=== PATIENT | female | born 1935 | race Caucasian/White ===

== ENCOUNTER 2016-12-18 11:52 | Observation (INO) ==
[2016-12-18] MEDS ORDERED: Ipratropium/Albuterol Neb 3 ML IH ONE (11:59)
--- NOTE | 2016-12-18 12:05 | Emergency Department Note ---
Disposition Clinical Impression: Dyspnea Qualifiers: Dyspnea type: unspecified Qualified Code(s): R06.00 - Dyspnea, unspecified Disposition: Admitted As Inpatient Condition: Fair Referrals: Zac Dial MD [Primary Care Provider] - Forms: ED Satisfaction Letter Time of Disposition: 13:24 SOB HPI - General Chief Complaint: ED Shortness of Breath/Dyspnea Stated Complaint: Cough Time Seen by Provider: 12/18/16 11:59 Source: patient, family Mode of arrival: wheelchair Limitations: no limitations Nursing Notes Reviewed: Yes Vital Signs Reviewed: Yes - History of Present Illness 81-year-old who states she's been short of breath with a cough for one week. States she has run a fever at home. Has no history of lung problems. Does have a history of congestive heart failure. Pt Subjective Complaint: shortness of breath, cough Onset (ago): week(s) Context: recent illness Severity: moderate Consistency/Duration: constant Improves with: nothing Worsens with: exertion Known history of: congestive heart failure Associated symptoms: Reports: fever, cough, wheezing Treatment prior to arrival: none Cough Description: Involuntary Cough Frequency: Intermittent - Related Data Home Medications Medication Instructions Recorded Confirmed Aspirin 81 mg PO DAILY 11/22/15 11/22/15 Labetalol HCl 12.5 mg PO BID 11/22/15 11/22/15 Levothyroxine [Synthroid] 25 mcg PO DAILY 11/22/15 11/22/15 Losartan Potassium [Cozaar] 100 mg PO DAILY 11/22/15 11/22/15 Omeprazole [PriLOSEC] 10 mg PO DAILY 11/22/15 11/23/15 Previous Rx's Medication Instructions Recorded Cholecalciferol (D-3) [Vitamin D] 1,000 unit PO DAILY #30 tablet 11/25/15 Cyclobenzaprine [Flexeril] 10 mg PO TID PRN #30 tablet 11/25/15 HYDROcodone/Acet 5/325 mg [[place] 1 tab PO Q6H PRN #20 tablet 11/25/15 5-325 mg] Allergies Allergy/AdvReac Type Severity Reaction Status Date / Time No Known Allergies Allergy Verified 11/22/15 17:44 All systems ED: reviewed and negative except as stated. Constitutional: Denies: fever, chills, weakness, weight change Eyes: Denies: eye pain, eye discharge, vision change ENT ED: Denies: ear pain, throat pain, dental pain, hearing loss, epistaxis, congestion, dysphagia Cardiovascular: Denies: chest pain, palpitations, dyspnea on exertion, edema, syncope Respiratory: Reports: cough, dyspnea. Denies: wheezes, hemoptysis, stridor Gastrointestinal: Denies: abdominal pain, nausea, vomiting, diarrhea, constipation, hematemesis, melena, hematochezia Genitourinary: Denies: dysuria, frequency, hematuria, discharge Musculoskeletal: Denies: back pain, neck pain, arthralgia, myalgia Integumentary: Denies: rash, abrasion, lesions Neurological: Denies: headache, weakness, numbness, paresthesias, confusion, abnormal gait, vertigo Psychiatric: Denies: anxiety, depression, suicidal thoughts, homicidal thoughts , auditory hallucinations, visual hallucinations Endocrine: Denies: fatigue Hematological/Lymphatic: Denies: easy bleeding, easy bruising Allergic/Immunologic: Denies: facial swelling, urticaria Past Medical History - Past Medical History Medical history: Reports: CHF, GERD, hypertension, thyroid disease, other Surgical history: Reports: colectomy, hysterectomy Psychiatric history: Reports: no psych history - Social History Smoking Status: Never smoker Alcohol use: Reports: none Drug use: Reports: none Physical Exam - General Limitations: no limitations General appearance: alert, in no apparent distress - Head Head exam: atraumatic, normocephalic, normal inspection - Eye Eye exam: Present: normal appearance, PERRL, EOMI - ENT ENT exam: normal exam, normal oropharynx, mucous membranes moist - Neck Neck exam: Present: normal inspection, full ROM, trachea midline - Chest Chest inspection: Present: normal inspection, symmetric chest wall rise - Respiratory Respiratory exam: Present: other (Some rhonchi and rales) - Cardiovascular Cardiovascular exam: Present: regular rate, normal rhythm, normal heart sounds - Abdominal Exam Abdominal exam: Present: soft, Non-Tender. Absent: tenderness, distention, guarding, rebound, rigidity - Extremities Exam Extremities exam: Present: normal inspection, full ROM. Absent: tenderness, pedal edema - Expanded Lower Extremity Exam Neurovascular/Tendon exam: Absent: motor deficit, sensory deficit, tendon deficit Gait: not tested/not observed - Back Exam Back exam: Present: normal inspection, full ROM. Absent: tenderness - Neurological Exam Neurological exam: Present: alert, oriented X3 - Psychiatric Psychiatric exam: Present: normal affect - Skin Skin exam: Present: warm, dry, intact, normal color Course - Reevaluation(s) Reevaluation #1: 81-year-old comes in with exertional dyspnea and a cough congested. The patient is very winded when she walks. Her workup here including chest x-ray BNP and troponin are all negative. This may represent an anginal equivalent versus an infection. Time: 13:23 - Consultations Consultation #1: Discussed with Karol Covarrubias nurse practitioner, admit. Time: 13:23 Vital Signs Temperature 98.1 F 12/18/16 11:55 Pulse Rate 72 12/18/16 11:55 Respiratory Rate 20 12/18/16 11:55 Blood Pressure 118/76 12/18/16 11:55 O2 Sat by Pulse Oximetry 93 12/18/16 11:55 Temperature 98.1 F 12/18/16 11:55 Pulse Rate 67 12/18/16 12:51 Respiratory Rate 12 12/18/16 12:51 Blood Pressure 131/65 12/18/16 12:51 O2 Sat by Pulse Oximetry 99 12/18/16 12:51 Oxygen Delivery Oxygen Delivery Nasal Cannula Shortness of Breath/Dyspnea - Lab Data Lab results reviewed: Yes I reviewed the patient's lab results. Result diagrams: 12/18/16 12:24 12/18/16 12:24 Lab Results 12/18/16 12/18/16 12/18/16 Range/Units 12:24 12:24 12:24 WBC 8.8 (4.3-11.1) K/mcL RBC 4.11 (3.82-4.97) M/mcL Hgb 11.7 (11.5-15.4) g/dL Hct 35.7 (35.3-44.9) % MCV 86.9 (83.0-100.0) fL MCH 28.5 (28.0-33.3) pg MCHC 32.8 (31.6-35.5) g/dL RDW 12.8 (11.5-14.5) % Plt Count 201 (140-400) K/mcL MPV 9.6 (9.4-12.4) fL Immature Gran % 0.3 (0-4) % Seg Neutrophils % 69.0 % Lymphocytes % 15.2 % Monocytes % 13.2 % Eosinophils % 1.8 % Basophils % 0.5 % Neutrophils # 6.1 (1.6-8.9) K/mcL Lymphocytes # 1.3 (0.6-4.6) K/mcL Monocytes # 1.2 (0.0-1.3) K/mcL Eosinophils # 0.2 (0.0-0.6) K/mcL Basophils # 0.0 (0.0-0.2) K/mcL Sodium 138 (136-145) mEq/L Potassium 4.7 H (3.5-4.5) mEq/L Chloride 103 (98-109) mEq/L Carbon Dioxide 26 (19-29) mEq/L BUN 34 H (7-20) mg/dL Creatinine 1.62 H (0.57-1.11) mg/dL Est GFR ( Amer) 37 L (> 60) Est GFR (Non-Af Amer) 30 L (> 60) BUN/Creatinine Ratio 21 (6-26) Glucose 115 H (70-99) mg/dL Calculated Osmolality 295 (280-300) Lactic Acid (0.5-2.2) mmol/L Calcium 9.6 (8.6-10.8) mg/dL Troponin I 0.02 (0-0.03) ng/mL B-Natriuretic Peptide (0-100) pg/mL 12/18/16 12/18/16 Range/Units 12:24 12:24 WBC (4.3-11.1) K/mcL RBC (3.82-4.97) M/mcL Hgb (11.5-15.4) g/dL Hct (35.3-44.9) % MCV (83.0-100.0) fL MCH (28.0-33.3) pg MCHC (31.6-35.5) g/dL RDW (11.5-14.5) % Plt Count (140-400) K/mcL MPV (9.4-12.4) fL Immature Gran % (0-4) % Seg Neutrophils % % Lymphocytes % % Monocytes % % Eosinophils % % Basophils % % Neutrophils # (1.6-8.9) K/mcL Lymphocytes # (0.6-4.6) K/mcL Monocytes # (0.0-1.3) K/mcL Eosinophils # (0.0-0.6) K/mcL Basophils # (0.0-0.2) K/mcL Sodium (136-145) mEq/L Potassium (3.5-4.5) mEq/L Chloride (98-109) mEq/L Carbon Dioxide (19-29) mEq/L BUN (7-20) mg/dL Creatinine (0.57-1.11) mg/dL Est GFR ( Amer) (> 60) Est GFR (Non-Af Amer) (> 60) BUN/Creatinine Ratio (6-26) Glucose (70-99) mg/dL Calculated Osmolality (280-300) Lactic Acid 1.0 (0.5-2.2) mmol/L Calcium (8.6-10.8) mg/dL Troponin I (0-0.03) ng/mL B-Natriuretic Peptide 98 (0-100) pg/mL - Radiology Data Radiology results reviewed: Yes I reviewed the patient's radiology results. Chest X-Ray 12/18/16 11:59 IMPRESSION: No acute cardiopulmonary disease. D/ / Ferny Love MD / Ferny Love MD Interpreting Provider: Ferny Love MD - EKG Data EKG attestation: Yes I reviewed and interpreted this EKG. EKG shows normal: Reports: sinus rhythm Rate: Reports: normal Rhythm: Reports: NSR [place]/QRS: Reports: LBBB When compared to previous EKG there are: no significant changes (08/27/2014) Interpretation: Reports: no acute changes
[2016-12-18 12:35] LABS: Basophils % 0.5 %; Eosinophils # 0.2 K/mcL (0.0-0.6); Eosinophils % 1.8 %; Hematocrit 35.7 % (35.3-44.9); Hemoglobin 11.7 g/dL (11.5-15.4); Immature Granulocytes % 0.3 % (0-4); Lymphocytes # 1.3 K/mcL (0.6-4.6); Lymphocytes % 15.2 %; Mean Corpuscular HGB Conc 32.8 g/dL (31.6-35.5); Mean Corpuscular Hemoglobin 28.5 pg (28.0-33.3); Mean Corpuscular Volume 86.9 fL (83.0-100.0); Mean Platelet Volume 9.6 fL (9.4-12.4); Monocytes # 1.2 K/mcL (0.0-1.3); Monocytes % 13.2 %; Neutrophils # 6.1 K/mcL (1.6-8.9); Platelet Count 201 K/mcL (140-400); Red Blood Count 4.11 M/mcL (3.82-4.97); Red Cell Distribution Width 12.8 % (11.5-14.5)
[2016-12-18 12:48] LABS: Calcium 9.6 mg/dL (8.6-10.8); Potassium 4.7 mEq/L (3.5-4.5)
[2016-12-18] MEDS ORDERED: Azithromycin 500 MG in D5% in Water 250 ML IVPB ONE (13:20)
[2016-12-18] MEDS ORDERED: Acetaminophen 325 MG TABLET PO PRN (13:59)
[2016-12-18] MEDS ORDERED: Naloxone 0.4 MG/ML INJ IVP PRN (13:59)
--- NOTE | 2016-12-18 14:38 | Internal Med History&Physical ---
<Warren Cee P - Last Filed: 12/18/16 16:40> Date of Encounter: 12/18/16 Internal Medicine - H&P: HPI History of present illness: Ms. Booth is a 81 year old female Internal Medicine - H&P: Meds Aspirin [Lo-Dose Aspirin EC] 81 mg PO DAILY #0 11/22/15 [History] Levothyroxine [Synthroid] 25 mcg PO DAILY 11/22/15 [History] Losartan Potassium [Cozaar] 100 mg PO DAILY 11/22/15 [History] Omeprazole [PriLOSEC] 20 mg PO DAILY 11/22/15 [History] Cholecalciferol (D-3) [Vitamin D] 1,000 unit PO DAILY #30 tablet 11/25/15 [Rx] Calcium Carb,Cit/D3/Phytostrol [Citracal D + Heart Health Tab] 1 tab PO DAILY [History] Carvedilol [Carvedilol] 12.5 mg PO BID 12/18/16 [History] Glucosamine/MSM/Chondroit Sulf [Cvs Fxrolkvvddw-Ugpsyb-KTO Tab] 1 tab PO DAILY 12/18/16 [History] Allergies No Known Allergies Allergy (Verified 11/22/15 17:44) All Systems PM: A 10-system review of systems was performed and is negative for pertinent findings except as documented above in the HPI. - Constitutional Vitals: Temp Pulse Resp BP Pulse Ox 98.1 F 72 20 133/98 97 12/18/16 15:06 12/18/16 15:06 12/18/16 15:06 12/18/16 15:06 12/18/16 15:06 Internal Med - H&P Results - Labs CBC & Chem 7: 12/18/16 12:24 12/18/16 12:24 - Attending Attestation I examined this patient and my medical decision-making was reviewed with the CINDER PITMAN/PA/Advanced Practice Nurse/Resident Physician. I agree with the documented findings, disposition and treatment plan as described except to the extent set forth below. <Marlyn Norris - Last Filed: 12/18/16 17:37> Date of Encounter: 12/18/16 Time of Encounter: 14:38 Assessment and Plan (1) Dyspnea Current visit: Yes Status: Acute She has been exercising increased dyspnea as well as a cough she is unable to perform her own ADLs. Chest x-ray no acute process the past history COPD she does have history CHF BNP is 98 no peripheral edema noted some scattered rhonchi and rales. He was hypoxic on presentation SPO2 88% Continue with oxygen titrated to maintain SPO2 greater than 92% 2 we will continue with bronchodilators 3 we will obtain d-dimer as well as VQ scan to rule out possibility of PE 4 we will trend troponins 5 we will continue with Rocephin and azithromycin 6 obtain cardiac echo Qualifiers: Dyspnea type: shortness of breath Qualified Code(s): R06.02 - Shortness of breath (2) CKD (chronic kidney disease), stage III Current visit: No Status: Chronic 1 creatinine is 1.62. Line is 1.2-1.4 we will continue to monitor creatinine 2 and gentle hydration 3 monitor intake and output daily weights 4 avoid nephrotoxins (3) Hypertension Current visit: No Status: Chronic 1 presently stable continue with home medications 2 low sodium diet Qualifiers: Hypertension type: essential hypertension Qualified Code(s): I10 - Essential (primary) hypertension (4) DVT prophylaxis Current visit: Yes Status: Acute Heparin subcutaneous Internal Medicine - H&P: HPI Chief complaint: Shortness of breath and cough Admitted From: Emergency Dept Plans for Post Hospital Care: Home History of present illness: Ms. Booth is a 81 year old female has a history of hypertension CHF [place] CMP CK D stage III she had heart catheter in 2014 with no stents. According to the patient she has been experiencing increasing shortness of breath and a cough which started on Tuesday. She has been producing yellow thick sputum. She has had subjective fevers she denies any weight gain weight loss no edema. She denies any recent sick contacts. She denies any chest pain abdominal pain nausea vomiting or diarrhea. She states his shortness of breath has increased to the point that she is unable to perform her activities of daily living. She presented to the ER with above complaint. According to ER records lab work was unremarkable leukocytosis creatinine is 1.62 however patient's baseline is 1.2- 1.4 area and troponins 0.02 BNP was 98 chest x-ray showed no acute process EKG with no ST-T wave abnormality she does have a left bundle branch block which has been chronic. She was 93% on room air at presentation She has been admitted for further workup and evaluation. Presently the patient denies any chest pain she has conversational dyspnea she is on 2 L nasal cannula and started that SPO2 will drop down during conversation. She has scattered wheezes and rhonchi throughout lung tabor she has a moist nonproductive cough heart sounds are regular S1-S2 with no rubs clicks or gallops noted. No edema noted abdomen soft nontender. She is hemodynamically stable. Reviewed this case with Dr. Cee who agrees with plan. Past Med Surg Social Fam HX - Past Medical History Medical history: CHF, GERD, hypertension, thyroid disease, other Psychiatric history: no psych history - Past Surgical History Surgical History: colectomy, hysterectomy - Social History Smoking Status: Never smoker Alcohol use: none Drug use: none - Family History Mother Living Status: Hx Family Cardiac Disorders: Yes (HTN) Hx Family Respiratory Disorders: No Hx Family Cancer: No Hx Family GI Disorders: No Hx Family Endocrine Disorder: No Hx Family Neuromuscular Disorders: No Hx Family Neurologic Disorders: No Hx Family HEENT Disorders: No Hx Family Autoimmune Disorders: No Father Living Status: Hx Family Cardiac Disorders: No Hx Family Respiratory Disorders: No Hx Family Cancer: Yes (Skin) Hx Family GI Disorders: No Hx Family Endocrine Disorder: No Hx Family Neuromuscular Disorders: No Hx Family Neurologic Disorders: No Hx Family HEENT Disorders: No Hx Family Autoimmune Disorders: No All Systems PM: A 10-system review of systems was performed and is negative for pertinent findings except as documented above in the HPI. - Constitutional Constitutional: fatigue, no chills, no fever(s), no night sweats - EENT Eyes: no change in vision, no discharge, no pain, no photophobia Nose, mouth and throat: no dysphagia, no nasal discharge, no neck pain, no sore throat - Cardiovascular Cardiovascular ROS IM: dyspnea on exertion - Respiratory Respiratory: cough, dyspnea on exertion, change in phlegm color - Gastrointestinal Gastrointestinal: no abdominal pain, no diarrhea, no hematemesis, no hematochezia, no melena, no nausea, no vomiting - Genitourinary Genitourinary: no change in urinary stream, no dysuria, no flank pain, no hematuria - Musculoskeletal Musculoskeletal ROS IM: no numbness, no tingling - Integumentary Integumentary IM: no rash, no unusual bruising - Neurological Neurological ROS: no confusion, no convulsions, no focal weakness, no numbness, no tingling, no tremor(s) - Hematologic/Lymphatic Hematologic/Lymphatic: no easy bruising - Constitutional Vitals: Temp Pulse Resp BP Pulse Ox 98.1 F 64 12 148/83 98 12/18/16 11:55 12/18/16 13:58 12/18/16 14:03 12/18/16 14:03 12/18/16 13:58 General appearance: Present: A&O X 3, answers questions appropriately - Head Head exam: Present: atraumatic, normocephalic - Eye Eye exam: Present: PERRL, conjuntiva pink, sclera anicteric Pupils: Present: PERRL - Neck Neck exam general surgery: Present: supple, trachea midline. Absent: lymphadenopathy - Respiratory Respiratory exam: Present: rhonchi, wheezes. Absent: accessory muscle use, rales Additional comments: Conversational dyspnea - Cardiovascular Cardiovascular exam: Present: RRR, +S1, +S2. Absent: diastolic murmur, gallop, rubs, systolic murmur - GI/Abdominal GI/Abdominal exam: Present: normal bowel sounds, soft, no peritoneal signs. Absent: distended, tenderness - Extremities Exam Extremities exam: Present: warm, radial pulses palpable and symetrical. Absent : calf tenderness, cyanotic, pedal edema - Neurological Exam Neurological exam: Present: CN II-XII intact, oriented X3, no focal deficits. Absent: pronater drift, facial droop, speech deficit - Skin Skin exam: Present: dry, intact Internal Med - H&P Results - Labs CBC & Chem 7: 12/18/16 12:24 12/18/16 12:24 - EKG Data EKG shows normal: sinus rhythm - EKG Data Prior EKG available for review: yes When compared to previous EKG: there is no significant change EKG comments: 12/18/16 17:30 Left bundle-branch block which was present prior EKG - Diagnostic Studies Chest x-ray Additional comments: Chest X-Ray 12/18/16 11:59 IMPRESSION: No acute cardiopulmonary disease. D/ / Ferny Love MD / Ferny Love MD Interpreting Provider: Ferny Love MD
[2016-12-18] MEDS ORDERED: Albuterol 2.5 MG/3 ML NEBULIZER IH PRN (15:03)
[2016-12-18] MEDS: MethylPREDNISolone 40 MG/ML VIAL IVP SCH ×2 (16:13→23:19)
[2016-12-18] MEDS: 0.9 % Sodium Chloride 1,000 ML IVC SCH (16:13)
[2016-12-18] MEDS: Benzonatate 100 MG CAPSULE PO PRN ×2 (17:02→23:24)
[2016-12-18] MEDS: *HR* Heparin 5,000 UNIT/ML VIAL SQ SCH (17:02)
[2016-12-18] MEDS: Ipratropium/Albuterol Neb 3 ML IH SCH ×3 (17:49→23:11)
[2016-12-19 01:28] LABS: Basophils % 0.1 %; Hematocrit 34.5 % (35.3-44.9); Hemoglobin 10.9 g/dL (11.5-15.4); Immature Granulocytes % 0.6 % (0-4); Immature Platelets 3.2 % (1.1-6.1); Lymphocytes # 0.8 K/mcL (0.6-4.6); Lymphocytes % 9.4 %; Mean Corpuscular HGB Conc 31.6 g/dL (31.6-35.5); Mean Corpuscular Hemoglobin 27.7 pg (28.0-33.3); Mean Corpuscular Volume 87.6 fL (83.0-100.0); Mean Platelet Volume 10.1 fL (9.4-12.4); Monocytes # 0.2 K/mcL (0.0-1.3); Platelet Count 198 K/mcL (140-400); Red Blood Count 3.94 M/mcL (3.82-4.97); Red Cell Distribution Width 12.6 % (11.5-14.5); Segmented Neutrophils % 87.9 %
[2016-12-19 01:44] LABS: Calcium 9.2 mg/dL (8.6-10.8); Magnesium 2.2 mg/dL (1.6-2.6); Potassium 4.6 mEq/L (3.5-4.5)
[2016-12-19] MEDS: Ipratropium/Albuterol Neb 3 ML IH SCH ×6 (04:00→23:12)
[2016-12-19] MEDS: Levothyroxine 25 MCG TABLET PO SCH (06:13)
[2016-12-19] MEDS: *HR* Heparin 5,000 UNIT/ML VIAL SQ SCH ×2 (06:14→18:14)
[2016-12-19] MEDS: 0.9 % Sodium Chloride 1,000 ML IVC SCH ×2 (06:14→22:41)
[2016-12-19] MEDS: Benzonatate 100 MG CAPSULE PO PRN (10:04)
[2016-12-19] MEDS: Aspirin Enteric Coated 81 MG Tablet PO SCH (10:05)
[2016-12-19] MEDS: Azithromycin 500 MG in D5% in Water 250 ML IVPB SCH (10:05)
[2016-12-19] MEDS: MethylPREDNISolone 40 MG/ML VIAL IVP SCH ×3 (10:05→22:44)
--- NOTE | 2016-12-19 15:16 | Internal Med Progress Note ---
Date of Encounter: 12/19/16 Time of Encounter: 12:30 - Assessment and plan (1) Dyspnea Current Visit: Yes Status: Acute Assessment and plan: improving. Unclear causation. Chest x-ray is negative. She is a non-/never smoker. She appears euvolemic on examination now that she has been eating and drinking. VQ scan with low probability for PE. Suspect possible upper respiratory tract infection. We will continue azithromycin and ceftriaxone. Will wean oxygen as she tolerates. Possible discharge tomorrow pending clinical outcomes. ITS Impressions Chest X-Ray 12/18/16 11:59 IMPRESSION: No acute cardiopulmonary disease. D/ / Ferny Love MD / Ferny Love MD Interpreting Provider: Ferny Love MD Pulmonary Perfusion Imaging 12/18/16 15:12 IMPRESSION: Low Probability for Pulmonary Embolus. D/ / Jassi Gerard MD / Jassi Gerard MD Interpreting Provider: Jassi Gerard MD (2) Acute respiratory failure Current Visit: Yes Status: Acute Assessment and plan: Continue supplemental oxygenation, wean as she tolerates. No home oxygen, 2 L per nasal cannula here. Suspect we will be able to wean overnight pending clinical outcomes. Qualifiers: Respiratory failure complication: unspecified whether with hypoxia or hypercapnia Qualified Code(s): J96.00 - Acute respiratory failure, unspecified whether with hypoxia or hypercapnia (3) Hypertension Current Visit: No Status: Chronic Assessment and plan: Controlled. We will continue to trend Qualifiers: Hypertension type: essential hypertension Qualified Code(s): I10 - Essential (primary) hypertension (4) Poor fluid intake Current Visit: No Status: Resolved Assessment and plan: Patient now endorsing a normal diet (5) CKD (chronic kidney disease), stage III Current Visit: No Status: Chronic Assessment and plan: Has been stable since admission however slightly on the lower end of her normal. Now that she is eating and drinking, will recheck in the morning. (6) DVT prophylaxis Current Visit: Yes Status: Acute Assessment and plan: Subcutaneous heparin - Subjective Interval history: Patient seen and examined. On examination, patient sitting upright in bed watching television. Patient stating her cough has improved but she is not back to her baseline. Patient stating that prior to today, she was not able to eat. She is endorsing a normal appetite now. - Constitutional Vitals: Temp Pulse Resp BP Pulse Ox 97.5 F L 71 16 131/76 95 12/19/16 15:05 12/19/16 15:05 12/19/16 15:05 12/19/16 15:05 12/19/16 15:05 General appearance: Present: A&O X 3, pleasant, no acute distress, answers questions appropriately - Head Head exam: Present: atraumatic, normocephalic - Eye Eye exam: Present: PERRL, conjuntiva pink, sclera anicteric Pupils: Present: PERRL - Neck Neck exam general surgery: Present: supple, trachea midline. Absent: lymphadenopathy - Respiratory Respiratory exam: Present: decreased breath sounds (slightly; good aeration). Absent: accessory muscle use, rales, respiratory distress, rhonchi, wheezes - Cardiovascular Cardiovascular exam: Present: RRR, +S1, +S2. Absent: diastolic murmur, gallop, rubs, systolic murmur - GI/Abdominal GI/Abdominal exam: Present: normal bowel sounds, soft, no peritoneal signs. Absent: distended, tenderness - Extremities Exam Extremities exam: Present: warm, radial pulses palpable and symetrical. Absent : calf tenderness, cyanotic, pedal edema - Neurological Exam Neurological exam: Present: alert, CN II-XII intact, oriented X3, no focal deficits, strengths equal and symetr throughout. Absent: pronater drift, facial droop, speech deficit - Skin Skin exam: Present: dry, intact, pallor, warm Internal Medicine: Result - Labs CBC & Chem 7: 12/19/16 01:02 12/19/16 01:02 Labs: Short CBC 12/19/16 Range/Units 01:02 WBC 8.0 (4.3-11.1) K/mcL Hgb 10.9 L (11.5-15.4) g/dL Hct 34.5 L (35.3-44.9) % Plt Count 198 (140-400) K/mcL Neutrophils # 7.0 (1.6-8.9) K/mcL BMP 12/19/16 01:02 Sodium 134 L Potassium 4.6 H Chloride 103 Carbon Dioxide 25 BUN 37 H Creatinine 1.62 H Glucose 196 H Calcium 9.2 Cardiac Enzymes 12/18/16 12/19/16 Range/Units 18:33 01:02 Troponin I 0.01 0.01 (0-0.03) ng/mL - ABG Interpretation ABG results: PT/INR, D-dimer D-Dimer 509 ng/mLFEU (0-500) H 12/18/16 15:15 - Impressions Impressions Pulmonary Perfusion Imaging 12/18/16 15:12 IMPRESSION: Low Probability for Pulmonary Embolus. D/ / Jassi Gerard MD / Jassi Gerard MD Interpreting Provider: Jassi Gerard MD Consult Discharge Plan - Plan Referrals: Zac Dial MD [Primary Care Provider] -
[2016-12-20] MEDS: Ipratropium/Albuterol Neb 3 ML IH SCH ×4 (03:36→14:51)
[2016-12-20] MEDS ORDERED: GuaiFENesin Liq 200 MG/10 ML UDC PO PRN (03:54)
[2016-12-20 04:41] LABS: Calcium 8.6 mg/dL (8.6-10.8); Potassium 4.7 mEq/L (3.5-4.5)
[2016-12-20] MEDS: Levothyroxine 25 MCG TABLET PO SCH (06:50)
[2016-12-20] MEDS: Benzonatate 100 MG CAPSULE PO PRN ×2 (06:50→12:55)
[2016-12-20] MEDS: *HR* Heparin 5,000 UNIT/ML VIAL SQ SCH ×2 (06:50→17:57)
--- NOTE | 2016-12-20 08:10 | Electrocardiograph Report ---
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
[2016-12-20] MEDS: Azithromycin 500 MG in D5% in Water 250 ML IVPB SCH (08:15)
[2016-12-20] MEDS: Aspirin Enteric Coated 81 MG Tablet PO SCH (08:16)
[2016-12-20] MEDS: MethylPREDNISolone 40 MG/ML VIAL IVP SCH ×2 (08:18→17:57)
[2016-12-20] MEDS ORDERED: Ondansetron 4 MG/2 ML VIAL IVP PRN (09:28)
--- NOTE | 2016-12-20 16:37 | Electrocardiograph Report ---
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
[2016-12-20 17:09] VITALS: BP 135/73
--- NOTE | 2016-12-20 17:29 | Discharge Summary ---
Date of Encounter: 12/20/16 Time of Encounter: 10:00 (and 1630) - Discharge Diagnosis (1) Dyspnea Priority: Primary Status: Resolved Comments: Patient denies shortness of breath above her normal day of discharge. (2) Acute respiratory failure Priority: Primary Status: Resolved Comments: Tolerated room air while admitted Qualifiers: Respiratory failure complication: unspecified whether with hypoxia or hypercapnia Qualified Code(s): J96.00 - Acute respiratory failure, unspecified whether with hypoxia or hypercapnia (3) Hypertension Priority: Secondary Status: Chronic Comments: Controlled, follow-up outpatient Qualifiers: Hypertension type: essential hypertension Qualified Code(s): I10 - Essential (primary) hypertension (4) Poor fluid intake Priority: Primary Status: Resolved (5) CKD (chronic kidney disease), stage III Priority: Secondary Status: Chronic Comments: Improved and remained stable while admitted (6) DVT prophylaxis Priority: Primary Status: Acute Comments: Subcutaneous heparin while admitted - Discharge Medications Prescriptions: Azithromycin [Zithromax] 250 mg PO DAILY #3 tablet Benzonatate [Tessalon] 100 mg PO TID PRN #20 capsule PRN Reason: Cough Ondansetron HCl 4 mg PO Q8H PRN #12 tablet PRN Reason: Nausea And Vomiting predniSONE [PredniSONE] 40 mg PO DAILY #10 tablet Home Medications: Aspirin [Lo-Dose Aspirin EC] 81 mg PO DAILY #0 11/22/15 [History] Levothyroxine [Synthroid] 25 mcg PO DAILY 11/22/15 [History] Losartan Potassium [Cozaar] 100 mg PO DAILY 11/22/15 [History] Omeprazole [PriLOSEC] 20 mg PO DAILY 11/22/15 [History] Cholecalciferol (D-3) [Vitamin D] 1,000 unit PO DAILY #30 tablet 11/25/15 [Rx] Calcium Carb,Cit/D3/Phytostrol [Citracal D + Heart Health Tab] 1 tab PO DAILY [History] Carvedilol 12.5 mg PO BID 12/18/16 [History] Glucosamine/MSM/Chondroit Sulf [Cvs Klpbpalysta-Dsbmqr-VQY Tab] 1 tab PO DAILY 12/18/16 [History] Azithromycin [Zithromax] 250 mg PO DAILY #3 tablet 12/20/16 [Rx] Benzonatate [Tessalon] 100 mg PO TID PRN #20 capsule 12/20/16 [Rx] Ondansetron HCl 4 mg PO Q8H PRN #12 tablet 12/20/16 [Rx] predniSONE [PredniSONE] 40 mg PO DAILY #10 tablet 12/20/16 [Rx] Allergies/Adverse Reactions: Allergies No Known Allergies Allergy (Verified 11/22/15 17:44) Procedures/tests Complete & Pending: Procedures Performed prior 72 hours Category Date Time Status VQ Scan [NM pul vent and perfuse] [NM] Routine Exams 12/18/16 15:12 Completed ECG 12 lead ECG [ECG] Routine Y 12/18/16 22:03 Completed Date of admission: 12/18/16 13:33 Primary care physician: Zac Dial MD Discharging clinician: Vale Sanchez Anticipated date of discharge: 12/20/16 - Patient Status Disposition: Home, Self-Care Condition: Fair Functional capacity at discharge: independent ambulation Overall status at discharge: patient is back to baseline - Discharge Instructions Follow Up With: Zac Dial MD [Primary Care Provider] - (Dr. Dial's office will be calling you with an appointment. Thank you!) Additional Instructions: Follow-up with primary care provider within one to 2 weeks - Diet and Activity Activity: increase activity as tolerated Diet: low fat, low cholesterol, low salt diet Hospital course: Ms. Booth is a 81 year old female with past medical history of [place] cardiomyopathy, hypertension, CHF, chronic kidney disease stage III, hypothyroidism. Patient presented to the emergency room for chief complaint increasing shortness of breath and cough that started 5 days prior to presentation. Patient also endorsed production of yellow thick sputum. She stated she had subjective fevers. She denied any weight changes or edema. She denied chest pain, abdominal pain, nausea vomiting or diarrhea. Patient stating her shortness of breath had increased to the point where she was unable to perform her activities of daily living. Workup in the emergency department unremarkable. Chest x-ray negative. Patient was admitted to the hospitalist service for further evaluation and management. D-dimer elevated to VQ scan was performed which ruled out a PE. Patient initially required supplemental oxygenation but was weaned to room air shortly after admission. She was admitted and observed over the course of 2 nights and remained on room air and denies shortness of breath above her normal on day of discharge. She was able to tolerate a regular diet while admitted. She was euvolemic on examination throughout this admission. She was treated for an upper respiratory tract infection with azithromycin and ceftriaxone while admitted, and sent home to complete a 6 day course of azithromycin. She is discharged home in stable condition with close outpatient follow-up recommended. ITS Impressions Chest X-Ray 12/18/16 11:59 IMPRESSION: No acute cardiopulmonary disease. D/ / Ferny Love MD / Ferny Love MD Interpreting Provider: Ferny Love MD Pulmonary Perfusion Imaging 12/18/16 15:12 IMPRESSION: Low Probability for Pulmonary Embolus. D/ / Jassi Gerard MD / Jassi Gerard MD Interpreting Provider: Jassi Gerard MD - Time Spent with Patient Total time spent providing and/or coordinating discharge services: - Constitutional Vitals: Temp Pulse Resp BP Pulse Ox 98.0 F 80 14 135/73 93 12/20/16 17:08 12/20/16 17:08 12/20/16 17:08 12/20/16 17:08 12/20/16 17:08 General appearance: Present: A&O X 3, pleasant, no acute distress, answers questions appropriately - Head Head exam: Present: atraumatic, normocephalic - Eye Eye exam: Present: PERRL, conjuntiva pink, sclera anicteric Pupils: Present: PERRL - Neck Neck exam general surgery: Present: supple, trachea midline. Absent: lymphadenopathy - Respiratory Respiratory exam: Present: CTAB. Absent: accessory muscle use, decreased breath sounds, rales, respiratory distress, rhonchi, wheezes - Cardiovascular Cardiovascular exam: Present: RRR, +S1, +S2. Absent: diastolic murmur, gallop, rubs, systolic murmur - GI/Abdominal GI/Abdominal exam: Present: normal bowel sounds, soft, no peritoneal signs. Absent: distended, tenderness - Extremities Exam Extremities exam: Present: warm, radial pulses palpable and symetrical. Absent : calf tenderness, cyanotic, pedal edema - Neurological Exam Neurological exam: Present: alert, CN II-XII intact, normal gait, oriented X3, no focal deficits, strengths equal and symetr throughout. Absent: pronater drift, facial droop, speech deficit - Skin Skin exam: Present: dry, intact, normal color, warm
== END 2016-12-20 18:25 | disposition home or self-care (01) ==
LOC: EMEROO 11:52 → 3BNU 11:52
PROVIDERS: ADMIT Nurse Practitioner Family; ATTEND Nurse Practitioner Family